=== PATIENT | female | born 1990 ===

== ENCOUNTER 2019-03-07 10:08 | Emergency (ER) | payer OTHER ==
[~2019-03-07] VITALS: Ht 157.5 cm; Wt 63.6 kg
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
[2019-03-07] MEDS ORDERED: diphenhydrAMINE 50 mg/ml inj IM ONE (10:30)
[2019-03-07] MEDS ORDERED: haloperidol lactate 5mg/ml inj IM ONE (10:30)
[2019-03-07] MEDS ORDERED: LORazepam 2 mg/ml vial IM ONE (10:30)
[2019-03-07] MEDS ORDERED: LORazepam 2 mg/ml vial ONE ×2 (10:45→11:01)
[2019-03-07] MEDS ORDERED: quetiapine 100mg tablet PO STA (11:14)
[2019-03-07 11:55] LABS: BASOPHILS # (AUTO) 0.1 X10'3 (0-0.2); BASOPHILS % (AUTO) 1.2 % (0-1); EOSINOPHILS # (AUTO) 0.1 X10'3 (0-0.9); EOSINOPHILS % (AUTO) 1.1 % (0-6); HEMATOCRIT 36.3 % (35.0-45.0); HEMOGLOBIN 12.3 g/dl (12.0-16.0); LYMPHOCYTES # (AUTO) 1.7 X10'3 (1.1-4.8); LYMPHOCYTES % (AUTO) 26.7 % (21-51); MEAN CORPUSCULAR HEMOGLOBIN 31.7 PG (27.0-31.0); MEAN CORPUSCULAR VOLUME 93.4 FL (78-98); MEAN PLATELET VOLUME 7.5 FL (7.4-10.4); MONOCYTES # (AUTO) 0.7 X10'3 (0-0.9); MONOCYTES % (AUTO) 11.7 % (2-12); NEUTROPHILS # (AUTO) 3.8 X10'3 (1.8-7.7); NEUTROPHILS % (AUTO) 59.3 % (42-75); PLATELET COUNT 241 X10'3 (140-440); RED BLOOD COUNT 3.89 X10'6 (4.20-5.60); RED CELL DISTRIBUTION WIDTH 14.3 % (11.5-14.5); WHITE BLOOD COUNT 6.3 X10'3 (4.5-11.0)
[2019-03-07 12:06] LABS: ALANINE AMINOTRANSFERASE 45 U/L (12-78); ALBUMIN 3.9 G/DL (3.4-5.0); ALBUMIN/GLOBULIN RATIO 1.1 (1.1-1.5); ALKALINE PHOSPHATASE 45 IU/L (46-116); ANION GAP 10 (8-16); ASPARTATE AMINO TRANSFERASE 76 U/L (10-37); BLOOD UREA NITROGEN 20 MG/DL (7-18); BUN/CREATININE RATIO 26.3 (6.6-38.0); CALCIUM 8.7 MG/DL (8.5-10.1); CHLORIDE 101 MMOL/L (99-107); CREATININE 0.76 MG/DL (0.40-0.90); GLUCOSE 77 MG/DL (70-104); POTASSIUM 3.1 MMOL/L (3.5-5.1); SODIUM 138 MMOL/L (135-145); TOTAL CARBON DIOXIDE 26.8 MMOL/L (24-32); TOTAL PROTEIN 7.3 G/DL (6.4-8.2); eGFR > 90 ML/MIN
--- NOTE | 2019-03-07 12:10 | NUR ---
Pt is resting in bed peacefully at this time on her left side. No distress noted, will conitnue to monitor.
[2019-03-07 12:16] LABS: ETHANOL < 0.010 GM/DL (0.0-0.010)
[2019-03-07] MEDS ORDERED: potassium Cl 20 mEq SR tablet PO STA (12:31)
--- NOTE | 2019-03-07 14:10 | NUR ---
Pt is resting in bed peacefully. no distress observed. Will conitnue to monitor. Pt did not eat lunch or snack.
--- NOTE | 2019-03-07 16:10 | NUR ---
Pt is resting in bed peacefully at this time in a supine position. No distress observed. Will conitnue to monitor.
--- NOTE | 2019-03-07 18:10 | NUR ---
Pt is resting in bed peacefully, no distress observed, will conitnue to monitor.
--- NOTE | 2019-03-07 19:00 | NUR ---
The patient is resting on her back with eyes closed. No s/s of distress noted.
--- NOTE | 2019-03-07 20:54 | NUR ---
The patient continues to sleep on her right side. Resp are even and unlabored. No s/s of distress.
--- NOTE | 2019-03-08 01:03 | NUR ---
The patient is resting on her left side with his eyes closed. No s/s of distress.
--- NOTE | 2019-03-08 02:46 | NUR ---
The patient is laying on her right side with eyes closed. Resp. are even and unlabored. No s/s of distress.
--- NOTE | 2019-03-08 04:24 | NUR ---
The patient is laying on her left side with eyes closed. Resp. are even and unlabored. No s/s of distress.
--- NOTE | 2019-03-08 06:20 | NUR ---
Patient sleeping on right side. No distress observed. Continue to monitor.
--- NOTE | 2019-03-08 07:50 | NUR ---
Patient was brought her breakfast and patient rolled over but did not want to awaken. Patient sleeping prone. No distress observed. Continue to monitor.
--- NOTE | 2019-03-08 10:59 | NUR ---
Patient awoke and gave a urine sample. Patient eating at bedside. No distress observed. Continue to monitor.
[2019-03-08 11:17] LABS: URINE HCG NEGATIVE (NEG)
[2019-03-08 11:22] LABS: CLARITY,URINE CLEAR (Clear); COLOR,URINE YELLOW (Yellow); GLUCOSE, URINE NEGATIVE (Neg); KETONES,URINE 15 mg/dl (Neg); LEUKOCYTE ESTERASE ,URINE NEGATIVE (Neg); NITRITES, URINE NEGATIVE (Neg); OCCULT BLOOD,URINE NEGATIVE (Neg); PROTEIN,URINE NEGATIVE (Neg)
[2019-03-08 11:23] LABS: URINE AMPHETAMINE SCREEN POSITIVE (Neg); URINE BARBITUATE SCREEN NEGATIVE (Neg); URINE BENZODIAZEPINES SCREEN NEGATIVE (Neg); URINE CANNABINOID SCREEN POSITIVE (Neg); URINE COCAINE SCREEN NEGATIVE (Neg); URINE METHADONE SCREEN NEGATIVE (Neg); URINE OPIATE SCREEN NEGATIVE (Neg); URINE PHENCYCLIDINE SCREEN NEGATIVE (Neg)
[2019-03-08 11:27] LABS: UA COLLECTION TYPE CLN CATCH MIDSTREAM
[2019-03-08] MEDS ORDERED: potassium Cl 20 mEq SR tablet PO STA (11:35)
--- NOTE | 2019-03-08 12:25 | NUR ---
Patient taking medication for low potassium and Registration speaking to patient. Continue to monitor.
--- NOTE | 2019-03-08 13:04 | NUR ---
Patient sitting up and eating lunch. No distress observed. Continue to monitor.
--- NOTE | 2019-03-08 15:01 | NUR ---
Patient sleeping supine with blanket over her head. No distress observed. Continue to monitor.
--- NOTE | 2019-03-08 17:19 | NUR ---
Remains asleep at this time. Has slept for the remainder of the afternoon with the covers over her head. In line of sight of staff at all times.
--- NOTE | 2019-03-08 17:36 | NUR ---
Awakened for vital signs. Stating she felt "pain all through my body." Given Tylenol to address pain.
[2019-03-08] MEDS ORDERED: acetaminophen 325mg tablet PO ONE (17:40)
[2019-03-08] MEDS ORDERED: potassium Cl 20 mEq SR tablet PO ONE (20:00)
--- NOTE | 2019-03-08 20:30 | NUR ---
PT PERFORMED DEFENSIVE KARATE-LIKE MOVES WHEN AWOKEN FOR MED ADMINISTRATION. WAS ABLE TO REDIRECT AND DEESCALATE PT QUICKLY AND PT WAS COOPERATIVE.
--- NOTE | 2019-03-09 06:48 | NUR ---
Patient awake and ambulatory to BR, steady gait. Continue to monitor.
[2019-03-09] MEDS ORDERED: LORazepam 1 MG tablet PO ONE (08:35)
[2019-03-09] MEDS ORDERED: OLANZapine 5mg rapidly disint. tablet PO ONE (08:35)
--- NOTE | 2019-03-09 08:40 | NUR ---
Patient is psychotic and talking about all her mommies are watching the RN. Patient laughing and talking to herself. Patient appears to be responding to internal stimuli. RN requested anti-psychotic medication for patient. Continue to monitor.
--- NOTE | 2019-03-09 09:09 | NUR ---
PACKET FAXED TO [facility], AND CALLED TO CONFIRM WITH THE COUNTY THAT THEY RECIEVED THE PACKET
--- NOTE | 2019-03-09 10:30 | NUR ---
Patient sleeping supine with covers over her face. No distress observed. Continue to monitor.
--- NOTE | 2019-03-09 12:10 | NUR ---
Patient sleeping on right side. No restlessness observed. Continue to monitor.
--- NOTE | 2019-03-09 13:05 | NUR ---
Patient sitting up and eating lunch. No distress observed. Continue to monitor.
--- NOTE | 2019-03-09 15:22 | NUR ---
Patient sleeping supine with her knees bent up. No distress observed. Continue to monitor.
--- NOTE | 2019-03-09 16:10 | NUR ---
Patient sleeping on right side. No distress observed. Continue to monitor.
--- NOTE | 2019-03-09 19:41 | NUR ---
One to one with the patient to assess severity of disordered thought processes and risk to harm herself and others. THe patient has been observed on the unit being calm and cooperative with the unit routine. She ate 100% of her dinner. She denies A/V hallucinations but appeared distracted and gave limited person information. She stated that she has been "venturing around" and is from [facility]. She has no family in the [facility] and stated the closest relatives she has are living in [place]. 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 She did admit to using methamphetamine for the past year. She is unable to identify a plan for self care if she were to leave the hospital.
--- NOTE | 2019-03-09 20:11 | NUR ---
The patient has been accepted at [facility] [place] and will be picked up the [facility] dedicated regional driver this evening.
[2019-03-09 20:48] VITALS: BP 119/68
== END 2019-03-09 20:52 ==
LOC: ER 10:09
DX: F29 Unspecified psychosis not due to a substance or known physiological condition (principal); R00.0 Tachycardia, unspecified; F41.0 Panic disorder [episodic paroxysmal anxiety]; F20.9 Schizophrenia, unspecified; F17.200 Nicotine dependence, unspecified, uncomplicated; F15.90 Other stimulant use, unspecified, uncomplicated
CPT/HCPCS: 36415; 80053; 80305; 80320; 81003; 81025; 84443; 85025; 96372; 99285; J1200; J1630; J2060